=== PATIENT | male | born 1965 | race Caucasian/White ===

== ENCOUNTER 2018-03-31 14:13 | Emergency (ER) | payer SELFPAY ==
[~2018-03-31] VITALS: Ht 182.9 cm; Wt 113.4 kg
[2018-03-31] MEDS ORDERED: ONDANSETRON HCL INJ 2MG/ML 2ML 2 MG/ML VIAL IV STA (14:42)
--- NOTE | 2018-03-31 15:28 | Diagnostic Imaging Report ---
EXAMINATION: PA and lateral views of the chest. COMPARISON: None CLINICAL HISTORY: Cough, nausea, vomiting DISCUSSION: Lungs are well-inflated. No focal consolidation, pleural effusion, or pneumothorax. Cardiomediastinal contour and pulmonary vasculature are within normal limits. No acute osseous abnormality. Healed fracture deformity of the left clavicular shaft. IMPRESSION: No acute cardiopulmonary abnormalities. Signed by: Dr. Jonh Harman M.D. on 03/31/2018 3:25 PM
== END 2018-03-31 15:44 | disposition home or self-care (01) ==
LOC: FSED 14:13
DX: R07.89 Other chest pain (principal); R05 Cough; J11.1 Influenza due to unidentified influenza virus with other respiratory manifestations; K52.9 Noninfective gastroenteritis and colitis, unspecified
CPT/HCPCS: 71046; 80048; 80076; 82553; 84484; 85025; 87400; 99284; J2405

== ENCOUNTER 2020-10-04 15:01 | Inpatient (IN) | payer SELFPAY ==
[~2020-10-04] VITALS: Ht 182.9 cm; Wt 117.9 kg
[2020-10-04] MEDS ORDERED: SODIUM CHLORIDE 0.9% 1000ML 1,000 ML ONE (15:25)
[2020-10-04] MEDS ORDERED: ONDANSETRON HCL INJ 2MG/ML 2ML 2 MG/ML VIAL ONE (15:25)
[2020-10-04] MEDS ORDERED: SODIUM CHLORIDE 0.9% 1000ML 1,000 ML IV STA (15:25)
[2020-10-04] MEDS ORDERED: FAMOTIDINE 20 MG/2 ML VIAL IV ONE ×2 (15:26→15:30)
[2020-10-04] MEDS ORDERED: KETOROLAC TROMETHAMINE 30 MG/ML VIAL IV ONE (15:30)
[2020-10-04] MEDS ORDERED: CEFTRIAXONE 1 GM VIAL IV ONE (15:30)
[2020-10-04] MEDS ORDERED: DEXAMETHASONE SOD PHOS 10 MG/1 ML VIAL IV ONE (15:30)
[2020-10-04] MEDS ORDERED: ONDANSETRON HCL INJ 2MG/ML 2ML 2 MG/ML VIAL IV ONE (15:30)
[2020-10-04] MEDS ORDERED: ACETAMINOPHEN 325 MG TAB PO ONE (15:30)
[2020-10-04] MEDS ORDERED: ACETAMINOPHEN 325 MG TAB ONE (15:36)
[2020-10-04] MEDS ORDERED: D5.45%NS/KCL 20MEQ 1,000 ML IV ONE (15:45)
[2020-10-04] MEDS ORDERED: CEFTRIAXONE 1 GM VIAL ONE (15:54)
[2020-10-04] MEDS ORDERED: DEXAMETHASONE SOD PHOS INJ 4 MG/ML VIAL ONE (15:54)
[2020-10-04] MEDS ORDERED: CEFTRIAXONE 1 GM in SODIUM CHLORIDE 0.9% 50ML 50 ML IV ONE (16:00)
[2020-10-04] MEDS ORDERED: ENOXAPARIN SODIUM INJ 100 MG/ML SYR SC ONE (16:26)
[2020-10-04] MEDS ORDERED: ENOXAPARIN SOD INJ 40 MG/0.4 ML SYR SC SCH (17:00)
[2020-10-04] MEDS ORDERED: ZOLPIDEM TARTRATE 5 MG TAB PO PRN (19:45)
[2020-10-04] MEDS ORDERED: IBUPROFEN 200 MG TAB PO PRN (19:45)
[2020-10-04] MEDS ORDERED: ONDANSETRON HCL INJ 2MG/ML 2ML 2 MG/ML VIAL IV PRN (19:45)
[2020-10-04] MEDS ORDERED: DIPHENHYDRAMINE HCL INJ 50 MG/ML VIAL IV PRN (19:45)
[2020-10-04 20:00] VITALS: BP 145/87
[2020-10-04] MEDS ORDERED: POTASSIUM CHLORIDE 20 MEQ in DEXTROSE 5%/0.45% SOD CHL 1,000 ML IV SCH (23:45)
[2020-10-05] VITALS (8 sets, daily range): BP systolic 108–143; BP diastolic 62–98
[2020-10-05] MEDS: ALBUTEROL SULFATE HFA 8GM INHALATION AEROSOL INH SCH ×4 (01:00→19:00)
[2020-10-05] MEDS: D5.45%NS/KCL 20MEQ 1,000 ML IV SCH ×2 (02:20→17:07)
[2020-10-05 05:38] LABS: BASOPHILS % 0.2 % (0.0-1.0); HEMATOCRIT 49.7 % (38.2-49.6); HEMOGLOBIN 16.1 g/dL (14.0-18.0); LYMPHOCYTES # (AUTO) 1.1 (1.0-3.2); LYMPHOCYTES % 26.8 % (18.0-39.1); MEAN CORPUSCULAR HEMOGLOBIN 28.6 pg (28-32); MEAN CORPUSCULAR HGB CONC 32.4 g/dL (31-35); MEAN CORPUSCULAR VOLUME 88.3 fL (81-99); MONOCYTES # (AUTO) 0.3 (0.2-0.8); MONOCYTES % 7.8 % (4.4-11.3); NEUTROPHILS # (AUTO) 2.7 (2.1-6.9); NEUTROPHILS % 64.7 % (38.7-80.0); PLATELET COUNT 105 x10e3/uL (140-360); RED BLOOD COUNT 5.63 x10e6/uL (4.3-5.7); RED CELL DISTRIBUTION WIDTH 14.4 % (11.7-14.4)
[2020-10-05 06:03] LABS: ANION GAP 13.4 mmol/L (8-16); CALCIUM 7.9 mg/dL (8.4-10.2); CREATININE, SERUM 0.83 mg/dL (0.72-1.25); POTASSIUM 4.4 mmol/L (3.5-5.1)
[2020-10-05] MEDS: CEFTRIAXONE 1 GM in SODIUM CHLORIDE 0.9% 50ML 50 ML IV SCH (08:02)
[2020-10-05] MEDS: FAMOTIDINE 20 MG/2 ML VIAL IV SCH ×2 (08:02→17:07)
[2020-10-05] MEDS: DEXAMETHASONE SOD PHOS 10 MG/1 ML VIAL IV SCH (08:02)
[2020-10-05] MEDS ORDERED: REMDESIVIR 200MG/NS 100ML 200 MG IV ONE (10:30)
[2020-10-05] MEDS: ENOXAPARIN SOD INJ 40 MG/0.4 ML SYR SC SCH (17:07)
[2020-10-05] MEDS: ACETAMINOPHEN 325 MG TAB PO PRN (19:35)
[2020-10-06] VITALS (9 sets, daily range): BP systolic 127–143; BP diastolic 88–97
[2020-10-06] MEDS: ALBUTEROL SULFATE HFA 8GM INHALATION AEROSOL INH SCH ×4 (01:00→19:00)
[2020-10-06] MEDS: D5.45%NS/KCL 20MEQ 1,000 ML IV SCH ×2 (02:25→17:11)
[2020-10-06 05:04] LABS: BASOPHILS % 0.2 % (0.0-1.0); HEMATOCRIT 48.4 % (38.2-49.6); HEMOGLOBIN 15.9 g/dL (14.0-18.0); LYMPHOCYTES # (AUTO) 1.1 (1.0-3.2); LYMPHOCYTES % 16.2 % (18.0-39.1); MEAN CORPUSCULAR HEMOGLOBIN 28.8 pg (28-32); MEAN CORPUSCULAR HGB CONC 32.9 g/dL (31-35); MEAN CORPUSCULAR VOLUME 87.7 fL (81-99); MONOCYTES # (AUTO) 0.4 (0.2-0.8); MONOCYTES % 6.3 % (4.4-11.3); NEUTROPHILS # (AUTO) 5.1 (2.1-6.9); PLATELET COUNT 108 x10e3/uL (140-360); RED BLOOD COUNT 5.52 x10e6/uL (4.3-5.7); RED CELL DISTRIBUTION WIDTH 14.3 % (11.7-14.4)
[2020-10-06 05:22] LABS: ANION GAP 15.2 mmol/L (8-16); CALCIUM 7.8 mg/dL (8.4-10.2); CREATININE, SERUM 0.87 mg/dL (0.72-1.25); POTASSIUM 4.2 mmol/L (3.5-5.1)
[2020-10-06] MEDS: HYDROCODONE/APAP 7.5MG-325MG 1 EA TAB PO PRN ×2 (05:43→22:24)
[2020-10-06] MEDS: DEXAMETHASONE SOD PHOS 10 MG/1 ML VIAL IV SCH (07:28)
[2020-10-06] MEDS: FAMOTIDINE 20 MG/2 ML VIAL IV SCH ×2 (07:28→17:11)
[2020-10-06] MEDS: CEFTRIAXONE 1 GM in SODIUM CHLORIDE 0.9% 50ML 50 ML IV SCH (07:28)
[2020-10-06] MEDS: REMDESIVIR 100MG/NS 100ML 100 MG IV SCH (14:17)
[2020-10-06] MEDS ORDERED: IOPAMIDOL 370 MG/ML 200 ML INFUS..BTL INJ ONE (14:36)
[2020-10-06] MEDS ORDERED: SODIUM CHLORIDE 0.9% 50ML 50 ML ONE (14:36)
[2020-10-06] MEDS: ENOXAPARIN SOD INJ 40 MG/0.4 ML SYR SC SCH (17:11)
[2020-10-07] VITALS: BP 128/93
[2020-10-07] MEDS: ALBUTEROL SULFATE HFA 8GM INHALATION AEROSOL INH SCH ×4 (01:00→19:00)
[2020-10-07 06:51] VITALS: BP 133/92
[2020-10-07] MEDS: DEXAMETHASONE SOD PHOS 10 MG/1 ML VIAL IV SCH (08:05)
[2020-10-07] MEDS: FAMOTIDINE 20 MG/2 ML VIAL IV SCH ×2 (08:05→17:09)
[2020-10-07] MEDS: D5.45%NS/KCL 20MEQ 1,000 ML IV SCH ×2 (08:05→18:25)
[2020-10-07] MEDS: CEFTRIAXONE 1 GM in SODIUM CHLORIDE 0.9% 50ML 50 ML IV SCH (08:05)
[2020-10-07] MEDS: BENZONATATE 100 MG CAP PO SCH ×2 (10:00→17:09)
[2020-10-07 12:00] VITALS: BP 139/90
[2020-10-07] MEDS: REMDESIVIR 100MG/NS 100ML 100 MG IV SCH (14:00)
[2020-10-07 16:00] VITALS: BP 130/83
[2020-10-07] MEDS: ENOXAPARIN SOD INJ 40 MG/0.4 ML SYR SC SCH (17:09)
[2020-10-07 20:00] VITALS: BP 153/79
[2020-10-08] VITALS (11 sets, daily range): BP systolic 123–149; BP diastolic 72–98
[2020-10-08] MEDS: ALBUTEROL SULFATE HFA 8GM INHALATION AEROSOL INH SCH ×4 (01:00→19:00)
[2020-10-08] MEDS: D5.45%NS/KCL 20MEQ 1,000 ML IV SCH ×2 (03:17→21:09)
[2020-10-08 06:10] LABS: BASOPHILS % 0.1 % (0.0-1.0); HEMATOCRIT 45.6 % (38.2-49.6); HEMOGLOBIN 14.8 g/dL (14.0-18.0); LYMPHOCYTES # (AUTO) 0.9 (1.0-3.2); LYMPHOCYTES % 11.3 % (18.0-39.1); MEAN CORPUSCULAR HEMOGLOBIN 28.7 pg (28-32); MEAN CORPUSCULAR HGB CONC 32.5 g/dL (31-35); MEAN CORPUSCULAR VOLUME 88.5 fL (81-99); MONOCYTES # (AUTO) 0.5 (0.2-0.8); MONOCYTES % 6.5 % (4.4-11.3); NEUTROPHILS # (AUTO) 6.6 (2.1-6.9); NEUTROPHILS % 81.5 % (38.7-80.0); PLATELET COUNT 112 x10e3/uL (140-360); RED BLOOD COUNT 5.15 x10e6/uL (4.3-5.7)
[2020-10-08 07:25] LABS: ALBUMIN/GLOBULIN RATIO 0.8 (0.8-2.0); ANION GAP 13.2 mmol/L (8-16); CALCIUM 8.3 mg/dL (8.4-10.2); CREATININE, SERUM 0.67 mg/dL (0.72-1.25); MAGNESIUM 2.1 MG/DL (1.3-2.1); POTASSIUM 4.2 mmol/L (3.5-5.1)
[2020-10-08] MEDS: DEXAMETHASONE SOD PHOS 10 MG/1 ML VIAL IV SCH (09:47)
[2020-10-08] MEDS: FAMOTIDINE 20 MG/2 ML VIAL IV SCH ×2 (09:48→17:09)
[2020-10-08] MEDS: BENZONATATE 100 MG CAP PO SCH ×2 (09:48→17:09)
[2020-10-08] MEDS: CEFTRIAXONE 1 GM in SODIUM CHLORIDE 0.9% 50ML 50 ML IV SCH (09:48)
[2020-10-08] MEDS: REMDESIVIR 100MG/NS 100ML 100 MG IV SCH (14:31)
[2020-10-08] MEDS: GUAIFENESIN/CODEINE 10 ML CUP PO PRN (14:37)
[2020-10-08] MEDS: ENOXAPARIN SOD INJ 40 MG/0.4 ML SYR SC SCH (17:09)
[2020-10-09] VITALS (8 sets, daily range): BP systolic 119–153; BP diastolic 81–97
[2020-10-09] MEDS: ALBUTEROL SULFATE HFA 8GM INHALATION AEROSOL INH SCH ×4 (01:00→19:00)
[2020-10-09] MEDS: CEFTRIAXONE 1 GM in SODIUM CHLORIDE 0.9% 50ML 50 ML IV SCH (08:43)
[2020-10-09] MEDS: FAMOTIDINE 20 MG/2 ML VIAL IV SCH ×2 (08:43→16:22)
[2020-10-09] MEDS: DEXAMETHASONE SOD PHOS 10 MG/1 ML VIAL IV SCH (08:43)
[2020-10-09] MEDS: BENZONATATE 100 MG CAP PO SCH ×2 (08:43→16:22)
[2020-10-09] MEDS: D5.45%NS/KCL 20MEQ 1,000 ML IV SCH ×2 (10:26→23:00)
[2020-10-09] MEDS: REMDESIVIR 100MG/NS 100ML 100 MG IV SCH (13:13)
[2020-10-09] MEDS: ENOXAPARIN SOD INJ 40 MG/0.4 ML SYR SC SCH (16:22)
[2020-10-09] MEDS: GUAIFENESIN/CODEINE 10 ML CUP PO PRN (22:40)
[2020-10-10] VITALS (8 sets, daily range): BP systolic 115–149; BP diastolic 64–98
[2020-10-10] MEDS: ALBUTEROL SULFATE HFA 8GM INHALATION AEROSOL INH SCH ×4 (01:00→19:55)
[2020-10-10] MEDS: GUAIFENESIN/CODEINE 10 ML CUP PO PRN (03:57)
[2020-10-10] MEDS: DEXAMETHASONE SOD PHOS 10 MG/1 ML VIAL IV SCH (09:25)
[2020-10-10] MEDS: FAMOTIDINE 20 MG/2 ML VIAL IV SCH ×2 (09:25→17:25)
[2020-10-10] MEDS: BENZONATATE 100 MG CAP PO SCH ×2 (09:26→17:26)
[2020-10-10] MEDS: CEFTRIAXONE 1 GM in SODIUM CHLORIDE 0.9% 50ML 50 ML IV SCH (09:26)
[2020-10-10] MEDS: D5.45%NS/KCL 20MEQ 1,000 ML IV SCH (12:39)
[2020-10-10] MEDS: ENOXAPARIN SOD INJ 40 MG/0.4 ML SYR SC SCH (17:26)
[2020-10-11] VITALS (7 sets, daily range): BP systolic 122–146; BP diastolic 85–104
[2020-10-11] MEDS: ALBUTEROL SULFATE HFA 8GM INHALATION AEROSOL INH SCH ×4 (01:25→19:40)
[2020-10-11] MEDS: D5.45%NS/KCL 20MEQ 1,000 ML IV SCH ×3 (02:25→21:47)
[2020-10-11] MEDS: GUAIFENESIN/CODEINE 10 ML CUP PO PRN (02:48)
[2020-10-11] MEDS: DEXAMETHASONE SOD PHOS 10 MG/1 ML VIAL IV SCH (09:26)
[2020-10-11] MEDS: FAMOTIDINE 20 MG/2 ML VIAL IV SCH ×2 (09:26→17:29)
[2020-10-11] MEDS: BENZONATATE 100 MG CAP PO SCH ×2 (09:27→17:29)
[2020-10-11] MEDS: ENOXAPARIN SOD INJ 40 MG/0.4 ML SYR SC SCH (17:29)
[2020-10-12] VITALS (8 sets, daily range): BP systolic 120–144; BP diastolic 82–104
[2020-10-12] MEDS: ALBUTEROL SULFATE HFA 8GM INHALATION AEROSOL INH SCH ×4 (01:52→19:12)
[2020-10-12 06:05] LABS: BASOPHILS # (AUTO) 0.1 (0.0-0.1); BASOPHILS % 0.4 % (0.0-1.0); EOSINOPHILS # (AUTO) 0.1 (0.0-0.4); EOSINOPHILS % 0.6 % (0.0-6.0); HEMATOCRIT 49.9 % (38.2-49.6); HEMOGLOBIN 15.9 g/dL (14.0-18.0); LYMPHOCYTES # (AUTO) 2.3 (1.0-3.2); MEAN CORPUSCULAR HEMOGLOBIN 27.9 pg (28-32); MEAN CORPUSCULAR HGB CONC 31.9 g/dL (31-35); MEAN CORPUSCULAR VOLUME 87.7 fL (81-99); MONOCYTES # (AUTO) 1.1 (0.2-0.8); MONOCYTES % 8.9 % (4.4-11.3); NEUTROPHILS # (AUTO) 8.8 (2.1-6.9); PLATELET COUNT 172 x10e3/uL (140-360); RED BLOOD COUNT 5.69 x10e6/uL (4.3-5.7); RED CELL DISTRIBUTION WIDTH 13.6 % (11.7-14.4)
[2020-10-12 06:25] LABS: ANION GAP 14.2 mmol/L (8-16); CALCIUM 8.4 mg/dL (8.4-10.2); CREATININE, SERUM 0.73 mg/dL (0.72-1.25); POTASSIUM 4.2 mmol/L (3.5-5.1)
[2020-10-12 07:58] LABS: LYMPHOCYTES % (MANUAL) 7 % (19-48); METAMYELOCYTES % (MANUAL) 1 % (0-0); MONOCYTES % (MANUAL) 7 % (3.4-9.0); NEUTROPHILS % (MANUAL) 79 % (40-74)
[2020-10-12 07:59] LABS: PLATELET ESTIMATE ADEQUATE; PLATELET MORPHOLOGY COMMENT NORMAL; RBC MORPHOLOGY COMMENT NORMAL
[2020-10-12] MEDS: BENZONATATE 100 MG CAP PO SCH ×2 (08:34→17:29)
[2020-10-12] MEDS ORDERED: FUROSEMIDE INJ 10 MG/ML 2 ML VIAL IV ONE (09:50)
[2020-10-12] MEDS: FAMOTIDINE 20 MG/2 ML VIAL IV SCH ×2 (10:30→17:29)
[2020-10-12] MEDS ORDERED: ACETAMINOPHEN 650 MG SUPP PR ONE (11:30)
[2020-10-12] MEDS ORDERED: ACETAMINOPHEN 325 MG SUPP PR ONE (11:30)
[2020-10-12 11:38] LABS: BASOPHILS # (AUTO) 0.1 (0.0-0.1); BASOPHILS % 0.4 % (0.0-1.0); EOSINOPHILS % 0.1 % (0.0-6.0); HEMOGLOBIN 17.5 g/dL (14.0-18.0); LYMPHOCYTES # (AUTO) 1.7 (1.0-3.2); MEAN CORPUSCULAR HEMOGLOBIN 28.3 pg (28-32); MEAN CORPUSCULAR HGB CONC 32.4 g/dL (31-35); MEAN CORPUSCULAR VOLUME 87.2 fL (81-99); MONOCYTES # (AUTO) 1.8 (0.2-0.8); MONOCYTES % 7.3 % (4.4-11.3); NEUTROPHILS # (AUTO) 20.6 (2.1-6.9); PLATELET COUNT 185 x10e3/uL (140-360); RED BLOOD COUNT 6.19 x10e6/uL (4.3-5.7); RED CELL DISTRIBUTION WIDTH 13.9 % (11.7-14.4)
[2020-10-12 11:42] LABS: ABG HCO3 23 mmol/L (22-26); ABG PCO2 26 mmHg (35-45); ABG PH 7.54 (7.35-7.45); ABG PO2 92 mmHg (80-105); ABG TCO2 24
[2020-10-12] MEDS ORDERED: METOPROLOL TARTRATE INJ 1 MG/ML VIAL IV ONE (11:45)
[2020-10-12] MEDS ORDERED: DIGOXIN INJ 0.25 MG/ML 2 ML AMP IV ONE (11:45)
[2020-10-12 11:56] LABS: ANION GAP 19.7 mmol/L (8-16); CALCIUM 8.7 mg/dL (8.4-10.2); CREATININE, SERUM 0.87 mg/dL (0.72-1.25); POTASSIUM 4.7 mmol/L (3.5-5.1)
[2020-10-12 13:35] LABS: EOSINOPHILS % (MANUAL) 1 % (0-7); LYMPHOCYTES % (MANUAL) 5 % (19-48); MONOCYTES % (MANUAL) 4 % (3.4-9.0); NEUTROPHILS % (MANUAL) 88 % (40-74); PLATELET ESTIMATE ADEQUATE; PLATELET MORPHOLOGY COMMENT NORMAL; RBC MORPHOLOGY COMMENT NORMAL
[2020-10-12] MEDS ORDERED: METOPROLOL TARTRATE INJ 1 MG/ML VIAL IV PRN (15:45)
[2020-10-12] MEDS: PIPERACILLIN/TAZOBACTAM 3.375 GM in SODIUM CHLORIDE 0.9% 50ML 50 ML IV SCH ×2 (17:29→23:50)
[2020-10-12] MEDS: D5.45%NS/KCL 20MEQ 1,000 ML IV SCH (19:37)
[2020-10-12] MEDS ORDERED: VANCOMYCIN 1GM/NS 250 ML 250 ML IV ONE (21:15)
[2020-10-12] MEDS ORDERED: Vancomycin IV 1 GM in SODIUM CHLORIDE 0.9% 250ML 250 ML IV ONE (21:30)
[2020-10-12] MEDS: SODIUM CHLORIDE 0.45% 1,000 ML IV SCH (21:54)
[2020-10-13] VITALS (8 sets, daily range): BP systolic 129–136; BP diastolic 77–98
[2020-10-13] MEDS: ALBUTEROL SULFATE HFA 8GM INHALATION AEROSOL INH SCH ×4 (00:33→19:45)
[2020-10-13 05:40] LABS: BASOPHILS % 0.1 % (0.0-1.0); EOSINOPHILS % 0.1 % (0.0-6.0); HEMATOCRIT 48.3 % (38.2-49.6); HEMOGLOBIN 15.9 g/dL (14.0-18.0); LYMPHOCYTES # (AUTO) 1.2 (1.0-3.2); LYMPHOCYTES % 7.7 % (18.0-39.1); MEAN CORPUSCULAR HEMOGLOBIN 28.9 pg (28-32); MEAN CORPUSCULAR HGB CONC 32.9 g/dL (31-35); MEAN CORPUSCULAR VOLUME 87.8 fL (81-99); MONOCYTES % 6.2 % (4.4-11.3); NEUTROPHILS # (AUTO) 13.6 (2.1-6.9); NEUTROPHILS % 84.2 % (38.7-80.0); PLATELET COUNT 152 x10e3/uL (140-360); RED CELL DISTRIBUTION WIDTH 13.9 % (11.7-14.4)
[2020-10-13] MEDS: PIPERACILLIN/TAZOBACTAM 3.375 GM in SODIUM CHLORIDE 0.9% 50ML 50 ML IV SCH ×2 (08:00→16:00)
[2020-10-13] MEDS: GUAIFENESIN/CODEINE 10 ML CUP PO PRN (08:15)
[2020-10-13] MEDS: FAMOTIDINE 20 MG/2 ML VIAL IV SCH ×2 (09:00→17:00)
[2020-10-13] MEDS: BENZONATATE 100 MG CAP PO SCH ×2 (09:00→17:00)
[2020-10-13] MEDS: SODIUM CHLORIDE 0.45% 1,000 ML IV SCH (12:00)
[2020-10-13] MEDS: ACETAMINOPHEN 325 MG TAB PO PRN (12:32)
[2020-10-14] VITALS (8 sets, daily range): BP systolic 129–146; BP diastolic 88–98
[2020-10-14] MEDS: PIPERACILLIN/TAZOBACTAM 3.375 GM in SODIUM CHLORIDE 0.9% 50ML 50 ML IV SCH ×4 (00:46→23:28)
[2020-10-14] MEDS: ALBUTEROL SULFATE HFA 8GM INHALATION AEROSOL INH SCH ×4 (01:41→19:45)
[2020-10-14] MEDS: SODIUM CHLORIDE 0.45% 1,000 ML IV SCH ×2 (01:41→13:30)
[2020-10-14 06:09] LABS: BASOPHILS % 0.3 % (0.0-1.0); EOSINOPHILS # (AUTO) 0.1 (0.0-0.4); EOSINOPHILS % 0.5 % (0.0-6.0); HEMATOCRIT 48.4 % (38.2-49.6); HEMOGLOBIN 15.7 g/dL (14.0-18.0); LYMPHOCYTES # (AUTO) 2.5 (1.0-3.2); LYMPHOCYTES % 17.1 % (18.0-39.1); MEAN CORPUSCULAR HEMOGLOBIN 28.2 pg (28-32); MEAN CORPUSCULAR HGB CONC 32.4 g/dL (31-35); MEAN CORPUSCULAR VOLUME 86.9 fL (81-99); MONOCYTES # (AUTO) 1.6 (0.2-0.8); MONOCYTES % 10.9 % (4.4-11.3); NEUTROPHILS # (AUTO) 10.4 (2.1-6.9); NEUTROPHILS % 69.9 % (38.7-80.0); PLATELET COUNT 152 x10e3/uL (140-360); RED BLOOD COUNT 5.57 x10e6/uL (4.3-5.7)
[2020-10-14 06:32] LABS: ALBUMIN 2.9 g/dL (3.5-5.0); ALBUMIN/GLOBULIN RATIO 0.8 (0.8-2.0); ANION GAP 14.2 mmol/L (8-16); CALCIUM 8.1 mg/dL (8.4-10.2); CREATININE, SERUM 0.78 mg/dL (0.72-1.25); POTASSIUM 4.2 mmol/L (3.5-5.1)
[2020-10-14] MEDS: BENZONATATE 100 MG CAP PO SCH ×2 (09:00→17:00)
[2020-10-14] MEDS: FAMOTIDINE 20 MG/2 ML VIAL IV SCH ×2 (09:00→17:00)
[2020-10-14 11:08] LABS: LYMPHOCYTES % (MANUAL) 12 % (19-48); MONOCYTES % (MANUAL) 13 % (3.4-9.0); NEUTROPHILS % (MANUAL) 70 % (40-74); POLYCHROMASIA FEW
[2020-10-14 11:09] LABS: PLATELET ESTIMATE ADEQUATE; RBC MORPHOLOGY COMMENT NORMAL
[2020-10-14] MEDS: METOPROLOL SUCCINATE 25 MG TAB XL PO SCH (15:30)
[2020-10-14] MEDS ORDERED: SODIUM CHLORIDE 0.9% 50ML 50 ML ONE (15:49)
[2020-10-15] VITALS (9 sets, daily range): BP systolic 122–135; BP diastolic 84–101
[2020-10-15] MEDS: ACETAMINOPHEN 325 MG TAB PO PRN (00:31)
[2020-10-15] MEDS: ALBUTEROL SULFATE HFA 8GM INHALATION AEROSOL INH SCH ×4 (01:13→19:00)
[2020-10-15] MEDS: SODIUM CHLORIDE 0.45% 1,000 ML IV SCH ×2 (03:54→14:03)
[2020-10-15] MEDS: PIPERACILLIN/TAZOBACTAM 3.375 GM in SODIUM CHLORIDE 0.9% 50ML 50 ML IV SCH ×2 (09:24→16:13)
[2020-10-15] MEDS: FAMOTIDINE 20 MG/2 ML VIAL IV SCH ×2 (09:24→16:12)
[2020-10-15] MEDS: BENZONATATE 100 MG CAP PO SCH ×2 (09:25→16:12)
[2020-10-15] MEDS: METOPROLOL SUCCINATE 25 MG TAB XL PO SCH (09:25)
[2020-10-15 16:40] LABS: FREE T4 (FREE THYROXINE) 1.08 ng/dL (0.8-1.8); THYROID STIMULATING HORMONE 0.024 uIU/mL (0.350-4.940)
[2020-10-16] VITALS (9 sets, daily range): BP systolic 124–152; BP diastolic 86–104
[2020-10-16] MEDS: ALBUTEROL SULFATE HFA 8GM INHALATION AEROSOL INH SCH ×4 (01:00→19:00)
[2020-10-16] MEDS: SODIUM CHLORIDE 0.45% 1,000 ML IV SCH ×2 (06:00→16:57)
[2020-10-16 06:25] LABS: BASOPHILS # (AUTO) 0.1 (0.0-0.1); BASOPHILS % 0.3 % (0.0-1.0); EOSINOPHILS # (AUTO) 0.1 (0.0-0.4); EOSINOPHILS % 0.7 % (0.0-6.0); HEMATOCRIT 48.9 % (38.2-49.6); LYMPHOCYTES # (AUTO) 2.7 (1.0-3.2); LYMPHOCYTES % 16.8 % (18.0-39.1); MEAN CORPUSCULAR HEMOGLOBIN 28.3 pg (28-32); MEAN CORPUSCULAR HGB CONC 32.7 g/dL (31-35); MEAN CORPUSCULAR VOLUME 86.5 fL (81-99); MONOCYTES # (AUTO) 1.7 (0.2-0.8); MONOCYTES % 10.3 % (4.4-11.3); NEUTROPHILS # (AUTO) 11.3 (2.1-6.9); NEUTROPHILS % 70.7 % (38.7-80.0); PLATELET COUNT 166 x10e3/uL (140-360); RED BLOOD COUNT 5.65 x10e6/uL (4.3-5.7); RED CELL DISTRIBUTION WIDTH 13.9 % (11.7-14.4)
[2020-10-16 06:42] LABS: ANION GAP 13.9 mmol/L (8-16); CALCIUM 8.3 mg/dL (8.4-10.2); CREATININE, SERUM 0.71 mg/dL (0.72-1.25); POTASSIUM 3.9 mmol/L (3.5-5.1)
[2020-10-16] MEDS: BENZONATATE 100 MG CAP PO SCH ×2 (08:30→16:57)
[2020-10-16] MEDS: PIPERACILLIN/TAZOBACTAM 3.375 GM in SODIUM CHLORIDE 0.9% 50ML 50 ML IV SCH ×3 (08:30)
[2020-10-16] MEDS: FAMOTIDINE 20 MG/2 ML VIAL IV SCH ×2 (08:30→16:57)
[2020-10-16] MEDS: METOPROLOL SUCCINATE 25 MG TAB XL PO SCH (08:31)
[2020-10-16] MEDS ORDERED: KETOROLAC TROMETHAMINE 30 MG/ML VIAL IV PRN (09:30)
[2020-10-16] MEDS: ENOXAPARIN SOD INJ 40 MG/0.4 ML SYR SC SCH (16:57)
[2020-10-17] VITALS (8 sets, daily range): BP systolic 124–142; BP diastolic 82–97
[2020-10-17] MEDS: ALBUTEROL SULFATE HFA 8GM INHALATION AEROSOL INH SCH ×3 (01:00→20:33)
[2020-10-17 05:57] LABS: BASOPHILS % 0.3 % (0.0-1.0); EOSINOPHILS # (AUTO) 0.1 (0.0-0.4); EOSINOPHILS % 0.8 % (0.0-6.0); HEMATOCRIT 46.3 % (38.2-49.6); HEMOGLOBIN 15.1 g/dL (14.0-18.0); LYMPHOCYTES # (AUTO) 2.5 (1.0-3.2); LYMPHOCYTES % 17.8 % (18.0-39.1); MEAN CORPUSCULAR HEMOGLOBIN 28.6 pg (28-32); MEAN CORPUSCULAR HGB CONC 32.6 g/dL (31-35); MEAN CORPUSCULAR VOLUME 87.7 fL (81-99); MONOCYTES # (AUTO) 1.7 (0.2-0.8); MONOCYTES % 11.7 % (4.4-11.3); NEUTROPHILS # (AUTO) 9.8 (2.1-6.9); NEUTROPHILS % 68.2 % (38.7-80.0); PLATELET COUNT 160 x10e3/uL (140-360); RED BLOOD COUNT 5.28 x10e6/uL (4.3-5.7); RED CELL DISTRIBUTION WIDTH 14.1 % (11.7-14.4)
[2020-10-17 06:22] LABS: ALBUMIN 2.5 g/dL (3.5-5.0); ALBUMIN/GLOBULIN RATIO 0.6 (0.8-2.0); CALCIUM 8.7 mg/dL (8.4-10.2); CREATININE, SERUM 0.67 mg/dL (0.72-1.25)
[2020-10-17] MEDS: SODIUM CHLORIDE 0.45% 1,000 ML IV SCH ×2 (08:10→19:30)
[2020-10-17] MEDS: METOPROLOL SUCCINATE 25 MG TAB XL PO SCH (09:00)
[2020-10-17] MEDS: BENZONATATE 100 MG CAP PO SCH ×2 (09:00→16:07)
[2020-10-17] MEDS: FAMOTIDINE 20 MG/2 ML VIAL IV SCH ×2 (09:00→16:07)
[2020-10-17] MEDS: ENOXAPARIN SOD INJ 40 MG/0.4 ML SYR SC SCH (16:07)
[2020-10-18] VITALS: BP 134/83
[2020-10-18] MEDS: ALBUTEROL SULFATE HFA 8GM INHALATION AEROSOL INH SCH ×2 (01:00→07:00)
[2020-10-18 04:00] VITALS: BP 138/93
[2020-10-18 05:37] LABS: BASOPHILS # (AUTO) 0.1 (0.0-0.1); BASOPHILS % 0.4 % (0.0-1.0); EOSINOPHILS # (AUTO) 0.1 (0.0-0.4); EOSINOPHILS % 0.8 % (0.0-6.0); HEMOGLOBIN 14.9 g/dL (14.0-18.0); LYMPHOCYTES # (AUTO) 2.6 (1.0-3.2); LYMPHOCYTES % 18.1 % (18.0-39.1); MEAN CORPUSCULAR HEMOGLOBIN 28.5 pg (28-32); MEAN CORPUSCULAR HGB CONC 32.4 g/dL (31-35); MONOCYTES # (AUTO) 1.4 (0.2-0.8); MONOCYTES % 10.2 % (4.4-11.3); NEUTROPHILS # (AUTO) 9.9 (2.1-6.9); NEUTROPHILS % 69.7 % (38.7-80.0); PLATELET COUNT 173 x10e3/uL (140-360); RED BLOOD COUNT 5.23 x10e6/uL (4.3-5.7); RED CELL DISTRIBUTION WIDTH 14.1 % (11.7-14.4)
[2020-10-18] MEDS: SODIUM CHLORIDE 0.45% 1,000 ML IV SCH (06:44)
[2020-10-18 07:20] VITALS: BP 138/93
[2020-10-18 07:55] VITALS: BP 141/91
[2020-10-18] MEDS: FAMOTIDINE 20 MG/2 ML VIAL IV SCH (09:20)
[2020-10-18] MEDS: BENZONATATE 100 MG CAP PO SCH (09:20)
[2020-10-18] MEDS: METOPROLOL SUCCINATE 25 MG TAB XL PO SCH (09:21)
[2020-10-18] MEDS ORDERED: ONDANSETRON HCL 4 MG ORAL DISINTEGRATING TAB PO PRN (11:00)
[2020-10-18 11:22] VITALS: BP 138/81
[2020-10-18] MEDS ORDERED: FAMOTIDINE 20 MG TAB PO SCH (16:30)
== END 2020-10-18 13:25 | disposition home or self-care (01) | DRG 871 ==
LOC: FSED 15:25 → ERHOLD 15:37 → FSED 16:13 → IMCU 19:55 → MED/SURG3 10-08 11:57
PROVIDERS: ADMIT Family Medicine; ATTEND Family Medicine
PROC: 3E0333Z Introduction of Anti-inflammatory into Peripheral Vein, Percutaneous Approach (ICD-10-PCS; 2020-10-04)
PROC: XW033E5 Introduction of Remdesivir Anti-infective into Peripheral Vein, Percutaneous Approach, New Technology Group 5 (ICD-10-PCS; 2020-10-05)
PROC: 02HV33Z Insertion of Infusion Device into Superior Vena Cava, Percutaneous Approach (ICD-10-PCS; principal; 2020-10-12)
DX: A41.89 Other specified sepsis (principal); U07.1 COVID-19; J12.82 Pneumonia due to coronavirus disease 2019; J96.01 Acute respiratory failure with hypoxia; J15.9 Unspecified bacterial pneumonia; I47.1 Supraventricular tachycardia; E66.9 Obesity, unspecified; Z68.35 Body mass index [BMI] 35.0-35.9, adult; D69.6 Thrombocytopenia, unspecified; D72.819 Decreased white blood cell count, unspecified; R53.81 Other malaise; R41.82 Altered mental status, unspecified
CPT/HCPCS: 36415; 36569; 36584; 36600; 70450; 71045; 71260; 80048; 80053; 82550; 82553; 82805; 83518; 83605; 83735; 84439; 84443; 84484; 85025; 86140; 87040; 87400; 93005; 93306; 93970; 96361; 96374; 96376; 99284; J0456; J0696; J1100; J1160; J1200; J1650; J1885; J1940; J2405; J2543; J3370; J7030; J7050; Q9967; U0002

== ENCOUNTER 2022-05-25 14:25 | Inpatient (IN) | payer SELFPAY ==
[~2022-05-25] VITALS: Ht 182.9 cm; Wt 122.5 kg
[2022-05-25] MEDS ORDERED: SODIUM CHLORIDE 0.9% 1000ML 1,000 ML IV SCH (15:00)
[2022-05-25] MEDS ORDERED: IOPAMIDOL 370 MG/ML 100 ML INFUS..BTL INJ ONE (15:12)
[2022-05-25] MEDS ORDERED: ALBUTEROL/IPRATROPIUM 3 ML NEB NEB ONE (15:15)
[2022-05-25] MEDS ORDERED: SODIUM CHLORIDE 0.9% 250ML 250 ML ONE (15:37)
[2022-05-25] MEDS ORDERED: SODIUM CHLORIDE 0.9% 1000ML 1,000 ML ONE (15:38)
[2022-05-25] MEDS ORDERED: CEFTRIAXONE 1 GM VIAL ONE (15:38)
[2022-05-25] MEDS ORDERED: ALBUTEROL/IPRATROPIUM 3 ML NEB ONE (15:39)
[2022-05-25] MEDS ORDERED: ONDANSETRON HCL INJ 2MG/ML 2ML 2 MG/ML VIAL IV PRN (17:45)
[2022-05-25] MEDS ORDERED: ACETAMINOPHEN 325 MG TAB PO PRN (17:45)
[2022-05-25] MEDS ORDERED: ACETAMINOPHEN 325 MG TAB PO ONE (18:00)
[2022-05-25] MEDS ORDERED: ACETAMINOPHEN 325 MG TAB ONE (18:05)
[2022-05-25 21:30] VITALS: BP 155/101
[2022-05-25 22:00] VITALS: BP 159/103
[2022-05-25 23:23] VITALS: BP 159/103
[2022-05-25] MEDS ORDERED: POTASSIUM CHLORIDE 20 MEQ TAB CR PO PRN (23:45)
[2022-05-25] MEDS ORDERED: LIDOCAINE 4% PATCH TP PRN (23:45)
[2022-05-25] MEDS ORDERED: ALBUTEROL/IPRATROPIUM 3 ML NEB NEB PRN (23:45)
[2022-05-25] MEDS ORDERED: HYDRALAZINE HCL 20 MG/ML VIAL IV PRN (23:45)
[2022-05-25] MEDS ORDERED: MELATONIN 5 MG TABLET PO PRN (23:45)
[2022-05-25] MEDS ORDERED: SIMETHICONE 80 MG CHEW PO PRN (23:45)
[2022-05-25] MEDS ORDERED: DIPHENHYDRAMINE HCL 25 MG CAP PO PRN (23:45)
[2022-05-25] MEDS ORDERED: DEXTROSE 50% SYRINGE 50 ML IV PRN (23:45)
[2022-05-25] MEDS ORDERED: DOCUSATE SODIUM 100 MG CAP PO PRN (23:45)
[2022-05-26] VITALS (7 sets, daily range): BP systolic 146–160; BP diastolic 81–105
[2022-05-26] MEDS: LOSARTAN POTASSIUM 100 MG TAB PO SCH ×2 (01:44→09:15)
[2022-05-26 07:37] LABS: CALCIUM 8.5 mg/dL (8.4-10.2); CREATININE, SERUM 0.81 mg/dL (0.72-1.25); PHOSPHORUS 2.7 MG/DL (2.3-4.7)
[2022-05-26 07:58] LABS: THYROID STIMULATING HORMONE 0.009 uIU/mL (0.350-4.940)
[2022-05-26] MEDS: PANTOPRAZOLE SOD 40 MG TABEC PO SCH (09:14)
[2022-05-26 09:25] LABS: BASOPHILS # (AUTO) 0.1 (0.0-0.1); BASOPHILS % 0.5 % (0.0-1.0); EOSINOPHILS % 0.3 % (0.0-6.0); HEMATOCRIT 47.5 % (38.2-49.6); HEMOGLOBIN 15.2 g/dL (14.0-18.0); LYMPHOCYTES # (AUTO) 1.2 (1.0-3.2); LYMPHOCYTES % 12.5 % (18.0-39.1); MEAN CORPUSCULAR HEMOGLOBIN 29.5 pg (28-32); MEAN CORPUSCULAR VOLUME 92.2 fL (81-99); MONOCYTES # (AUTO) 0.9 (0.2-0.8); MONOCYTES % 9.6 % (4.4-11.3); NEUTROPHILS # (AUTO) 7.1 (2.1-6.9); NEUTROPHILS % 76.6 % (38.7-80.0); PLATELET COUNT 133 x10e3/uL (140-360); RED BLOOD COUNT 5.15 x10e6/uL (4.3-5.7); RED CELL DISTRIBUTION WIDTH 15.4 % (11.7-14.4)
[2022-05-26] MEDS ORDERED: ALBUTEROL SULF 0.083% NEB SOLN 3 ML NEB ONE ×2 (09:32→15:13)
[2022-05-26] MEDS ORDERED: IPRATROPIUM BROMIDE 0.02% 2.5 ML NEB ONE ×2 (09:33→15:14)
[2022-05-26 09:38] LABS: ALBUMIN 3.4 g/dL (3.5-5.0); ALBUMIN/GLOBULIN RATIO 1.1 (0.8-2.0); CALCIUM 8.5 mg/dL (8.4-10.2); CREATININE, SERUM 0.81 mg/dL (0.72-1.25)
[2022-05-26] MEDS: BENZONATATE 100 MG CAP PO PRN (15:06)
[2022-05-26 15:21] LABS: CREATINE KINASE MB 0.9 ng/mL (0-5.0)
[2022-05-26] MEDS ORDERED: METHYLPREDNISOLONE SOD SUCC 125 MG/2ML VIAL IV ONE (15:30)
[2022-05-26] MEDS: ENOXAPARIN SOD INJ 40 MG/0.4 ML SYR SC SCH (17:35)
[2022-05-26] MEDS: METHYLPREDNISOLONE SOD SUCC 40 MG/ML VIAL 1ML IV SCH (20:43)
[2022-05-27] VITALS (9 sets, daily range): BP systolic 127–159; BP diastolic 78–98
[2022-05-27 01:09] LABS: CREATINE KINASE MB 1.5 ng/mL (0-5.0)
[2022-05-27] MEDS: BENZONATATE 100 MG CAP PO PRN ×3 (08:50→22:28)
[2022-05-27] MEDS: ALBUTEROL SULF 0.083% NEB SOLN 3 ML NEB NEB PRN ×3 (08:51→20:25)
[2022-05-27] MEDS: IPRATROPIUM BROMIDE 0.02% 2.5 ML NEB NEB PRN ×3 (08:51→20:25)
[2022-05-27] MEDS: METHYLPREDNISOLONE SOD SUCC 40 MG/ML VIAL 1ML IV SCH ×2 (08:52→20:20)
[2022-05-27] MEDS: PANTOPRAZOLE SOD 40 MG TABEC PO SCH (08:52)
[2022-05-27] MEDS: LOSARTAN POTASSIUM 100 MG TAB PO SCH (08:52)
[2022-05-27] MEDS: ENOXAPARIN SOD INJ 40 MG/0.4 ML SYR SC SCH (16:43)
[2022-05-27] MEDS: GUAIFENESIN/CODEINE 5 ML LIQD PO PRN (16:52)
[2022-05-28 03:42] VITALS: BP 139/91
[2022-05-28 05:33] LABS: HEMOGLOBIN 15.9 g/dL (14.0-18.0)
[2022-05-28 05:41] LABS: ANION GAP 14.8 mmol/L (8-16); CALCIUM 9.1 mg/dL (8.4-10.2); CREATININE, SERUM 0.85 mg/dL (0.72-1.25); POTASSIUM 4.8 mmol/L (3.5-5.1)
[2022-05-28] MEDS: ALBUTEROL SULF 0.083% NEB SOLN 3 ML NEB NEB PRN ×2 (07:50→19:10)
[2022-05-28] MEDS: IPRATROPIUM BROMIDE 0.02% 2.5 ML NEB NEB PRN ×2 (07:50→19:10)
[2022-05-28 08:00] VITALS: BP 146/92
[2022-05-28] MEDS: PANTOPRAZOLE SOD 40 MG TABEC PO SCH (09:26)
[2022-05-28] MEDS: METHYLPREDNISOLONE SOD SUCC 40 MG/ML VIAL 1ML IV SCH ×2 (09:27→21:54)
[2022-05-28] MEDS: LOSARTAN POTASSIUM 100 MG TAB PO SCH (09:27)
[2022-05-28] MEDS: GUAIFENESIN/CODEINE 5 ML LIQD PO PRN ×3 (09:27→22:05)
[2022-05-28 09:45] VITALS: BP 146/92
[2022-05-28 12:00] VITALS: BP 138/80
[2022-05-28 17:00] VITALS: BP 133/84
[2022-05-28] MEDS: ENOXAPARIN SOD INJ 40 MG/0.4 ML SYR SC SCH (17:25)
[2022-05-28 20:00] VITALS: BP 146/83
[2022-05-29] VITALS: BP 145/92
[2022-05-29 04:00] VITALS: BP 149/93
[2022-05-29] MEDS: PANTOPRAZOLE SOD 40 MG TABEC PO SCH (07:32)
[2022-05-29 08:00] VITALS: BP 144/83
[2022-05-29] MEDS: METHYLPREDNISOLONE SOD SUCC 40 MG/ML VIAL 1ML IV SCH (09:00)
[2022-05-29] MEDS: LOSARTAN POTASSIUM 100 MG TAB PO SCH (09:00)
[2022-05-29] MEDS ORDERED: AZITHROMYCIN 250 MG TAB PO SCH (09:00)
[2022-05-29] MEDS: GUAIFENESIN/CODEINE 5 ML LIQD PO PRN (09:10)
[2022-05-29 09:31] VITALS: BP 144/83
[2022-05-29] MEDS ORDERED: BENZONATATE100 MG PO (09:58)
[2022-05-29] MEDS ORDERED: PREDNISONE20 MG PO (09:58)
[2022-05-29] MEDS ORDERED: COZAAR100 MG PO (09:58)
[2022-05-29] MEDS ORDERED: CEFUROXIME500 MG PO (09:58)
== END 2022-05-29 10:44 | disposition home or self-care (01) | DRG 194 ==
LOC: FSED 14:48 → ERHOLD 17:49 → MED/SURG 22:05
PROVIDERS: ADMIT Internal Medicine; ATTEND Internal Medicine
DX: J18.9 Pneumonia, unspecified organism (principal); J44.0 Chronic obstructive pulmonary disease with (acute) lower respiratory infection; E66.01 Morbid (severe) obesity due to excess calories; Z68.36 Body mass index [BMI] 36.0-36.9, adult; Z20.822 Contact with and (suspected) exposure to COVID-19; F17.210 Nicotine dependence, cigarettes, uncomplicated; R09.02 Hypoxemia; I10 Essential (primary) hypertension
CPT/HCPCS: 36415; 71045; 71260; 80048; 80053; 80061; 81003; 82550; 82553; 83036; 83518; 83605; 83735; 83880; 84100; 84443; 84484; 85014; 85018; 85025; 87040; 87071; 87086; 87205; 87400; 93005; 94640; 94799; 99284; J0696; J1650; J2920; J2930; J7030; J7050; Q9967

== ENCOUNTER 2023-01-10 07:22 | Inpatient (IN) | payer SELFPAY ==
[~2023-01-10] VITALS: Ht 182.9 cm; Wt 122.5 kg
[~2023-01-10 07:22] MED LIST: BENZONATATE100 MG PO; CEFUROXIME500 MG PO; COZAAR100 MG PO; PREDNISONE20 MG PO
[2023-01-10 07:45] LABS: BASOPHILS % 0.2 % (0.0-1.0); EOSINOPHILS # (AUTO) 0.1 (0.0-0.4); EOSINOPHILS % 0.5 % (0.0-6.0); HEMATOCRIT 46.5 % (38.2-49.6); HEMOGLOBIN 15.4 g/dL (14.0-18.0); LYMPHOCYTES # (AUTO) 1.8 (1.0-3.2); LYMPHOCYTES % 10.8 % (18.0-39.1); MEAN CORPUSCULAR HEMOGLOBIN 29.1 pg (28-32); MEAN CORPUSCULAR HGB CONC 33.1 g/dL (31-35); MEAN CORPUSCULAR VOLUME 87.7 fL (81-99); MONOCYTES # (AUTO) 1.5 (0.2-0.8); MONOCYTES % 8.9 % (4.4-11.3); NEUTROPHILS % 79.2 % (38.7-80.0); PLATELET COUNT 167 x10e3/uL (140-360); RED CELL DISTRIBUTION WIDTH 14.3 % (11.7-14.4); WHITE BLOOD COUNT 16.45 x10e3/uL (4.8-10.8)
[2023-01-10] MEDS ORDERED: SODIUM CHLORIDE FLUSH 10 ML SYR IV PRN (07:45)
[2023-01-10 08:08] LABS: ALBUMIN 3.8 g/dL (3.5-5.0); ALBUMIN/GLOBULIN RATIO 1.4 (0.8-2.0); ANION GAP 11.9 mmol/L (8-16); CALCIUM 8.7 mg/dL (8.4-10.2); CREATININE, SERUM 0.8 mg/dL (0.72-1.25); POTASSIUM 3.9 mmol/L (3.5-5.1)
[2023-01-10] MEDS ORDERED: SODIUM CHLORIDE 0.9% 1000ML 1,000 ML IV ONE (08:30)
[2023-01-10] MEDS ORDERED: ASPIRIN 81 MG CHEW TAB PO ONE ×2 (11:00→11:30)
[2023-01-10] MEDS ORDERED: SODIUM CHLORIDE FLUSH 10 ML SYR INJ PRN (11:30)
[2023-01-10] MEDS ORDERED: ONDANSETRON HCL INJ 2MG/ML 2ML 2 MG/ML VIAL IV PRN (11:30)
[2023-01-10 12:25] VITALS: PULSE 74; RESP 20; O2SAT 97
[2023-01-10] MEDS ORDERED: HYDRALAZINE HCL 20 MG/ML VIAL IV PRN (12:30)
[2023-01-10] MEDS ORDERED: ACETAMINOPHEN 325 MG TAB PO PRN (12:30)
[2023-01-10] MEDS ORDERED: HYDROCODONE/APAP 5MG-325MG TAB PO PRN (12:30)
[2023-01-10 14:31] LABS: THYROID STIMULATING HORMONE 0.016 uIU/mL (0.350-4.940)
[2023-01-10 17:50] VITALS: BP 139/83; PULSE 87; RESP 20; RESP 22; TEMP 98.3; O2SAT 99
[2023-01-10] MEDS: ENOXAPARIN SOD INJ 40 MG/0.4 ML SYR SC SCH (17:50)
[2023-01-10 19:04] LABS: CLARITY,URINE CLEAR (CLEAR); COLOR,URINE YELLOW (YELLOW)
[2023-01-10 19:05] LABS: KETONES,URINE NEGATIVE (NEGATIVE); LEUKOCYTE ESTERASE ,URINE NEGATIVE (NEGATIVE); NITRITE,URINE NEGATIVE (NEGATIVE); PROTEIN,URINE DIPSTICK NEGATIVE (NEGATIVE)
[2023-01-10 19:06] LABS: AMPHETAMINES SCREEN,URINE NEGATIVE (NEGATIVE); PHENCYCLIDINE SCREEN,URINE NEGATIVE (NEGATIVE)
[2023-01-10 19:07] LABS: BENZODIAZEPINES SCREEN,URINE NEGATIVE (NEGATIVE); URINE UROBILINOGEN 1 mg/dL (0.2 - 1)
[2023-01-10 19:22] LABS: WBC,URINE (MAN) 0-5 /HPF (0-5)
[2023-01-10 19:23] LABS: EPITHELIAL CELLS,URINE RARE /LPF
[2023-01-10 20:12] VITALS: BP 161/87; PULSE 86; RESP 19; TEMP 98.1; O2SAT 97
[2023-01-10 20:13] VITALS: BP 139/83; PULSE 87; RESP 22; TEMP 98.3; O2SAT 99
[2023-01-10] MEDS ORDERED: MELATONIN 3 MG TAB PO SCH (21:00)
[2023-01-10] MEDS: BENZONATATE 100 MG CAP PO SCH (21:16)
[2023-01-10] MEDS: ALBUTEROL/IPRATROPIUM 3 ML NEB NEB SCH (23:00)
[2023-01-11] VITALS (12 sets, daily range): BP systolic 133–139; BP diastolic 79–88; PULSE 71–101; RESP 18–24; TEMP 98–98.6; O2SAT 94–99
[2023-01-11] MEDS: ALBUTEROL/IPRATROPIUM 3 ML NEB NEB SCH ×5 (03:00→19:36)
[2023-01-11 05:50] LABS: BASOPHILS % 0.3 % (0.0-1.0); EOSINOPHILS # (AUTO) 0.3 (0.0-0.4); EOSINOPHILS % 1.9 % (0.0-6.0); HEMATOCRIT 46.3 % (38.2-49.6); HEMOGLOBIN 15.3 g/dL (14.0-18.0); LYMPHOCYTES # (AUTO) 1.7 (1.0-3.2); LYMPHOCYTES % 12.9 % (18.0-39.1); MEAN CORPUSCULAR HEMOGLOBIN 29.3 pg (28-32); MEAN CORPUSCULAR VOLUME 88.7 fL (81-99); MONOCYTES # (AUTO) 1.3 (0.2-0.8); MONOCYTES % 9.4 % (4.4-11.3); NEUTROPHILS % 75.1 % (38.7-80.0); PLATELET COUNT 160 x10e3/uL (140-360); RED BLOOD COUNT 5.22 x10e6/uL (4.3-5.7); RED CELL DISTRIBUTION WIDTH 14.5 % (11.7-14.4)
[2023-01-11 06:18] LABS: ALBUMIN 3.5 g/dL (3.5-5.0); ALBUMIN/GLOBULIN RATIO 1.1 (0.8-2.0); ANION GAP 12.7 mmol/L (8-16); CALCIUM 8.5 mg/dL (8.4-10.2); CREATININE, SERUM 0.74 mg/dL (0.72-1.25); POTASSIUM 3.7 mmol/L (3.5-5.1)
[2023-01-11 06:32] LABS: CREATINE KINASE 42 IU/L (30-200)
[2023-01-11] MEDS ORDERED: PANTOPRAZOLE SOD 40 MG TABEC PO SCH (07:30)
[2023-01-11] MEDS ORDERED: POLYETHYLENE GLYCOL 3350 17 GM PACK PO SCH (09:00)
[2023-01-11] MEDS ORDERED: LOSARTAN POTASSIUM 25 MG TAB PO SCH (09:00)
[2023-01-11] MEDS ORDERED: AZITHROMYCIN 250 MG TAB PO SCH (09:00)
[2023-01-11] MEDS: BENZONATATE 100 MG CAP PO SCH ×2 (09:07→14:46)
[2023-01-11] MEDS ORDERED: ONDANSETRON HCL 4 MG ORAL DISINTEGRATING TAB PO PRN (10:15)
[2023-01-11] MEDS: ENOXAPARIN SOD INJ 40 MG/0.4 ML SYR SC SCH (16:53)
[2023-01-11] MEDS ORDERED: BENZONATATE100 MG PO (18:40)
[2023-01-11] MEDS ORDERED: PANTOPRAZOLE SO40 MG PO (18:40)
[2023-01-11] MEDS ORDERED: VENTOLIN HFA18 GM INH (18:40)
[2023-01-11] MEDS ORDERED: COZAAR25 MG PO (18:40)
[2023-01-11] MEDS ORDERED: AZITHROMYCIN250 MG PO (18:40)
== END 2023-01-11 20:50 | disposition home or self-care (01) | DRG 195 ==
LOC: ER 07:28 → ERHOLD 11:19 → MED/SURG3 17:05 → OBSVTOIN 01-11 14:14
PROVIDERS: ADMIT Internal Medicine; ATTEND Internal Medicine
DX: J18.9 Pneumonia, unspecified organism (principal); E66.9 Obesity, unspecified; Z68.36 Body mass index [BMI] 36.0-36.9, adult; R09.02 Hypoxemia; E05.90 Thyrotoxicosis, unspecified without thyrotoxic crisis or storm; J20.9 Acute bronchitis, unspecified; Z11.52 Encounter for screening for COVID-19; Z87.891 Personal history of nicotine dependence
CPT/HCPCS: 36415; 71045; 71046; 80053; 80061; 80307; 81001; 82550; 83036; 83605; 83880; 84439; 84443; 84481; 84484; 85025; 85379; 87040; 87400; 93005; 93306; 94640; 94799; 99285; G0378; J0696; J1650; J7030; J7050; U0002

== ENCOUNTER 2024-05-05 09:25 | Emergency (ER) | payer OTHER, SELFPAY ==
[~2024-05-05] VITALS: Ht 182.9 cm; Wt 122.5 kg
[~2024-05-05 09:25] MED LIST changes: +AZITHROMYCIN250 MG PO; +COZAAR25 MG PO; +PANTOPRAZOLE SO40 MG PO; +VENTOLIN HFA18 GM INH
[2024-05-05 09:28] VITALS: TEMP 98.7
[2024-05-05 09:48] LABS: BASOPHILS # (AUTO) 0.1 (0.0-0.1); BASOPHILS % 0.6 % (0.0-1.0); EOSINOPHILS # (AUTO) 0.3 (0.0-0.4); EOSINOPHILS % 2.6 % (0.0-6.0); HEMATOCRIT 47.4 % (38.2-49.6); HEMOGLOBIN 15.8 g/dL (14.0-18.0); LYMPHOCYTES # (AUTO) 2.3 (1.0-3.2); LYMPHOCYTES % 23.8 % (18.0-39.1); MEAN CORPUSCULAR HGB CONC 33.3 g/dL (31-35); MEAN CORPUSCULAR VOLUME 87.1 fL (81-99); MONOCYTES # (AUTO) 0.8 (0.2-0.8); MONOCYTES % 8.7 % (4.4-11.3); NEUTROPHILS % 62.5 % (38.7-80.0); PLATELET COUNT 166 x10e3/uL (140-360); RED BLOOD COUNT 5.44 x10e6/uL (4.3-5.7); RED CELL DISTRIBUTION WIDTH 14.1 % (11.7-14.4); WHITE BLOOD COUNT 9.64 x10e3/uL (4.8-10.8)
[2024-05-05 10:40] LABS: ALBUMIN 3.9 g/dL (3.5-5.0); ALBUMIN/GLOBULIN RATIO 1.5 (0.8-2.0); BILIRUBIN,TOTAL 0.5 mg/dL (0.2-1.2); CALCIUM 8.7 mg/dL (8.4-10.2); CREATININE, SERUM 0.79 mg/dL (0.72-1.25); TOTAL PROTEIN 6.5 g/dL (6.5-8.1)
[2024-05-05 10:46] LABS: TROPONIN I 0.005 ng/mL (0-0.300)
[2024-05-05] MEDS ORDERED: NAPROXEN250 MG PO (10:59)
[2024-05-05 11:00] VITALS: PULSE 70; RESP 18; O2SAT 95
== END 2024-05-05 11:18 | disposition home or self-care (01) ==
LOC: ER 09:35
DX: M94.0 Chondrocostal junction syndrome [Tietze] (principal); R42 Dizziness and giddiness
CPT/HCPCS: 36415; 71045; 80053; 83690; 83880; 84484; 85025; 93005; 99284